=== PATIENT | female | born 1945 | race Caucasian/White ===

== ENCOUNTER 2017-11-25 16:16 | Emergency (ER) | payer MEDICARE ==
[~2017-11-25] VITALS: Ht 153.7 cm; Wt 70.9 kg
[2017-11-25 17:01] LABS: HEMOGLOBIN 14.4 g/dl (12.0-16.0); IMMATURE GRANULOCYTES 0.3 % (0.0-5.0); MEAN CELL VOLUME 93.4 fL CALC (80.0-100.0); MEAN CORPUSCULAR HGB 30.6 pG CALC (26.0-32.0); MEAN CORPUSCULAR HGB CONC 32.7 g/L CALC (32.0-36.0); NEUT# 11.75 thou/uL (2.00-7.15); RED BLOOD COUNT 4.71 mill/uL (4.20-5.60); RED CELL DISTRI WIDTH 12.6 % (11.5-15.5)
[2017-11-25 17:20] LABS: ALBUMIN 4.5 g/dL (3.2-5.0); BILIRUBIN, TOTAL 0.4 mg/dL (0.0-1.4); CREATININE 2.4 mg/dL (0.5-1.0); POTASSIUM 4.5 mmol/l (3.5-5.1); TOTAL PROTEIN 7.5 g/dL (6.3-8.2)
[2017-11-25] MEDS ORDERED: ALPRAZOLAM ER0.5 MG PO (18:01)
[2017-11-25] MEDS ORDERED: LOPRESSOR 550 MG/TAB PO (18:02)
[2017-11-25] MEDS ORDERED: APAP/HYDRO325 MG/10 PO (18:02)
[2017-11-25] MEDS ORDERED: LISINOPRIL5 MG PO (18:03)
[2017-11-25 18:22] LABS: C. DIFFICILE TOXIN A&B NEGATIVE (NEGATIVE)
[2017-11-25 19:45] VITALS: BP 154/56
== END 2017-11-25 19:47 | disposition left against medical advice (07) ==
LOC: ED 16:16 → ED-I 17:48 → ED 19:47
PROVIDERS: Emergency Medicine
DX: R19.7 Diarrhea, unspecified (principal); R55 Syncope and collapse; Z91.19 Patient's noncompliance with other medical treatment and regimen; R10.32 Left lower quadrant pain; R53.1 Weakness